=== PATIENT | male | born 1965 | race Caucasian/White ===

== ENCOUNTER 2023-05-01 10:55 | Outpatient (CLI) | payer OTHER, SELFPAY | END 2023-05-01 10:56 | disposition home or self-care (01) | PROVIDERS: PCP Family Medicine; Visit Provider Family Medicine | DX: Z00.00 Encounter for general adult medical examination without abnormal findings (principal); Z13.1 Encounter for screening for diabetes mellitus; Z13.6 Encounter for screening for cardiovascular disorders; Z12.5 Encounter for screening for malignant neoplasm of prostate | CPT/HCPCS: 80048; 80061; 84153 ==

== ENCOUNTER 2025-02-06 09:57 | Outpatient (CLI) | payer OTHER, SELFPAY | END 2025-02-06 09:58 | disposition home or self-care (01) | PROVIDERS: PCP Family Medicine; Visit Provider Family Medicine | DX: Z00.00 Encounter for general adult medical examination without abnormal findings (principal); Z13.228 Encounter for screening for other metabolic disorders; Z13.6 Encounter for screening for cardiovascular disorders; Z12.5 Encounter for screening for malignant neoplasm of prostate | CPT/HCPCS: 80048; 80061; G0103 ==

== ENCOUNTER 2025-03-14 06:16 | Day surgery (SDC) | payer OTHER, SELFPAY ==
[2025-03-14] VITALS (11 sets, daily range): BP systolic 110–137; BP diastolic 74–88; PULSE 62–72; RESP 12–20; TEMP 36.8–37.1; O2SAT 91–96; BMI 30.9
[2025-03-14] MEDS: LACTATED RINGERS 1000 ML 1,000 ML 100 ML IV (06:55)
[2025-03-14] MEDS: SODIUM CHLORIDE 0.9 % (FLUSH) 10 ML SYRINGE IVF (07:00)
--- NOTE | 2025-03-14 07:25 | W.PM.H&PU ---
History & Physical Update History & Physical Update H&P Reviewed and patient assessed: No changes noted
--- NOTE | 2025-03-14 07:27 | P.GSOP_ITS ---
Operative Note Date of procedure: 03/14/25 Pre-op diagnosis: 1. Symptomatic right inguinal hernia. Post-op diagnosis: 1. Symptomatic right direct and indirect inguinal hernia. Type of Procedure: 1. Laparoscopic right inguinal hernia repair with mesh. Indications: 59-year-old male was seen in clinic for evaluation of right inguinal hernia. Patient started to notice aching in the right inguinal area over the winter. It was worse and more prominent when he was sitting or coughing. Sometimes he noticed aching pain with lifting. The pain usually lasted for half a day and then spontaneously resolved. He also noticed a small bulge in the right groin. He denied episodes of incarceration. On clinical exam with the patient standing up there was protrusion of soft tissue in the right inguinal area. There was also small to moderately sized inguinal hernia that was reducible. With the patient standing up there was no evidence of left inguinal hernia. Given patient's clinical history and his exam, laparoscopic right inguinal hernia repair was recommended. The procedure was discussed in detail. The risks associated procedure including infection, bleeding, injury to preperitoneal organs, and hernia recurrence were all discussed with the patient, and he agreed to proceed. Procedure Description: After discussing the risks and benefits of the procedure, the patient signed informed consent.? The operative site was marked and the patient was brought to the operating room and placed on the operating table in supine position.? Care was taken to pad the patient's pressure points.?? The patient was then intubated by anesthesia.?? The operative site was then prepped and draped in the usual sterile fashion.? A time-out was then performed. An infraumbilical skin incision was made with a scalpel and subcutaneous tissues were dissected with electrocautery. Anterior sheath was incised with electrocautery and rectus muscle was retracted laterally. A 12 mm spacemaker dissector system was introduced into the incision and advanced over the posterior sheath. Preperitoneal space was dissected with manually insufflating air under direct visualization. Once the tissues were dissected, the balloon was deflated and removed.? A laparoscopic balloon was placed into preperitoneal space and balloon was inflated. Preperitoneal space was insufflated with air. No bleeding was identified upon examination of preperitoneal space. We then placed two 5 mm ports suprapubically under direct visualization. ? The preperitoneal tissues were bluntly dissected with graspers.? The pubic bone was identified and? cleared from preperitoneal tissue.?? Inferior epigastrics on right?side were retracted towards the abdominal wall.?? Spermatic cord? was identified and dissected circumferentially.? This was done bluntly. The direct hernia space was identified.??The indirect hernia sac was noted and peritoneum was dissected bluntly from the spermatic cord. The hernia sac was moderate in size.?? When adequate space was developed for mesh placement, a Right sided large Parietex? mesh was used and positioned over the spermatic cord covering the direct space. The mesh was tacked medially and laterally with?tacks.? Additional local anesthetic was injected directly into pre-peritoneal space. ? The space was deflated under direct visualization and mesh appeared to be still lying in a good position. The ports were then removed. Patient's abdomen was tympanic to percussion Suggestive of intra-abdominal air. Posterior sheath and peritoneum were grasped with Marisol clamps and posterior sheath and peritoneum were incised with the Metzenbaum scissors. Abdomen was entered and pneumoperitoneum was release. This posterior sheath incision was then closed with a [id number] 3-0 Vicryl suture. Anterior sheath was then closed with a running 0-0 vicryl suture. Skin was clos ed with 4-0 monocryl using subcuticular stitch. Steri strips were applied over the laparoscopic?incisions. ? All counts were correct at the end of the case. Patient tolerated the procedure well and was transferred to PACU without any complications. Findings: moderately sized direct hernia space and indirect hernia sac. Repaired with large Bard mesh. Anesthesia: GETA Surgeon: Tevin Rain MD Estimated blood loss (mL): 5 Condition: stable Disposition: PACU
[2025-03-14] MEDS: BUPIVACAINE 0.25% 30 ML INJECTION (08:30)
[2025-03-14] MEDS: LIDOCAINE 1%-EPI 1:100,000 20 ML INFILTRATI (08:30)
--- NOTE | 2025-03-14 09:30 | P.ANES_ITS ---
Anesthesia Charges Start Date/Time Anesthesia Start Date: 03/14/25 Anesthesia Start Time: 07:29 Stop Date/Time Anesthesia Stop Date: 03/14/25 Anesthesia Stop Time: 08:59 Coding CPT Codes CPT Codes: ANESTH REPAIR OF HERNIA - 12834 ([id number]) P1 - NORMAL HEALTHY PATIENT, QK - WASTEWATER ANALYST LAB ANALYST 2-4 CNCRNT ANES PROC, QX - AGRICULTURAL CONSULTANT SVSigifredo W/ MED DIRECTION
--- NOTE | 2025-03-14 09:30 | W.ANESCHARGE ---
Anesthesia Charges Start Date/Time Anesthesia Start Date: 03/14/25 Anesthesia Start Time: 07:29 Stop Date/Time Anesthesia Stop Date: 03/14/25 Anesthesia Stop Time: 08:59 Coding CPT Codes CPT Codes: ANESTH REPAIR OF HERNIA - 80671 ([id number]) P1 - NORMAL HEALTHY PATIENT, QK - INSTRUCTIONAL TECHNOLOGY FACILITATOR 2-4 CNCRNT ANES PROC, QX - BAKED GOODS STOCK CLERK SVSigifredo W/ MED DIRECTION
== END 2025-03-14 10:34 | disposition home or self-care (01) ==
PROVIDERS: PCP Family Medicine; Visit Provider Surgery
PROC: (CPT 49650; principal; 2025-03-14 07:30)
DX: K40.90 Unilateral inguinal hernia, without obstruction or gangrene, not specified as recurrent (principal)
CPT/HCPCS: 49650; 00830; C1781; J0665; J0690; J1100; J1885; J2405; J2704; J3010; J3490; J7120